=== PATIENT | female | born 1985 | race Caucasian/White ===

== ENCOUNTER 2019-04-02 23:59 | Emergency (ER) | payer SELFPAY ==
[~2019-04-02] VITALS: Ht 180.3 cm; Wt 115.2 kg
[~2019-04-02 23:59] MED LIST: ELIMITE5% T
[2019-04-03] MEDS ORDERED: IBUPROFEN600 MG PO (02:10)
[2019-04-03] MEDS ORDERED: CEPHALEXIN500 M1 PO (02:10)
[2019-04-08] MEDS ORDERED: CEPHALEXIN500 M1 PO (14:47)
== END 2019-04-03 02:18 | disposition home or self-care (01) ==
LOC: ED 23:59
DX: S51.811A Laceration without foreign body of right forearm, initial encounter (principal); F17.200 Nicotine dependence, unspecified, uncomplicated; Z79.899 Other long term (current) drug therapy; W25.XXXA Contact with sharp glass, initial encounter; Y93.89 Activity, other specified; Y92.89 Other specified places as the place of occurrence of the external cause; Y99.8 Other external cause status